=== PATIENT | female | born 1990 | race Caucasian/White ===

== ENCOUNTER 2018-04-09 14:22 | Emergency (ER) | payer OTHER, SELFPAY ==
[2018-04-09] MEDS ORDERED: NA CHLORIDE 0.9% 1,000 ML ONE (14:56)
[2018-04-09 15:12] LABS: Absolute Lymphocytes (CBC) 1.5 K/uL (0.7-4.9); Absolute Monocytes 0.5 K/uL (0.1-1.3); Absolute Neutrophil 7.2 K/uL (1.8-8.0); Basophils % 0.3 % (0-1.3); Eosinophils % 0.3 % (0-4.4); Hematocrit 41.1 % (36.0-45.0); Lymphocytes % 15.8 % (15.3-44.8); MCH 33.7 pg (27.0-35.0); MCV 97.5 fL (80-100); MPV 8.4 fL (7.6-11.3); Monocytes % 5.8 % (3.3-12.3); RBC Red Blood Cell Count 4.21 M/uL (3.86-4.86)
[2018-04-09 15:17] LABS: BUN Blood Urea Nitrogen 13 mg/dL (6-20); Bicarbonate 23 mEq/L (21-31); Glucose Level 162 mg/dL (65-120); Potassium 3.4 mEq/L (3.6-5.0); Sodium Level 132 mEq/L (135-145)
[2018-04-09] MEDS ORDERED: POTASSIUM CL SA 10 MEQ TAB PO ONE (15:33)
[2018-04-09 15:34] LABS: Urine Blood TRACE (NEG); Urine Glucose NEGATIVE (NEG); Urine Protein NEGATIVE (NEG); Urine pH 6.5 (5.0-7.0)
--- NOTE | 2018-04-09 16:10 | ER ---
Nurse's Notes [facility] Name: Gladys Mohr Age: 27 yrs Sex: Female : 1990 Arrival Date: 04/09/2018 Time: 14:24 Bed 12 Private MD: Diagnosis: Hypokalemia;Volume depletion, unspecified Presentation: 04/09 14:25 Presenting complaint: EMS states: pt was working at [employer] in [place], said she is tw2 dehydrated, started getting chills and was jittery, denies LOC, they gave her orange juice, she did report a lot of drinking last night, no med hx, vs stable. Transition of care: patient was not received from another setting of care. Onset of symptoms was April 09, 2018. Risk Assessment: Do you want to hurt yourself or someone else? Patient reports no desire to harm self or others. Initial Sepsis Screen: Does the patient meet any 2 criteria? No. Patient's initial sepsis screen is negative. Does the patient have a suspected source of infection? No. Patient's initial sepsis screen is negative. Care prior to arrival: None. 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 - Social history:: Smoking status: Patient uses tobacco products, smokes one pack cigarettes per day. Patient uses alcohol, on a daily basis. - Ebola Screening: : Patient negative for fever greater than or equal to 101.5 degrees Fahrenheit, and additional compatible Ebola Virus Disease symptoms Patient denies exposure to infectious person Patient denies travel to an Ebola-affected area in the 21 days before illness onset No symptoms or risks identified at this time. Screenin:27 Abuse screen: Denies threats or abuse. Nutritional screening: No deficits noted. tw2 Tuberculosis screening: No symptoms or risk factors identified. Fall Risk None identified. Assessment: 14:35 General: Appears in no apparent distress. Behavior is calm, cooperative. Pain: iw Complains of pain in right hand and left hand. Neuro: Level of Consciousness is awake, alert, obeys commands, Oriented to person, place, time, Moves all extremities. Cardiovascular: Patient's skin is warm and dry. Respiratory: Respiratory effort is even, unlabored, Respiratory pattern is regular, symmetrical. GI: Patient currently denies nausea, vomiting. Derm: Skin is pink, warm \T\ dry. Musculoskeletal: Range of motion: intact in all extremities. Vital Signs: 14:26 BP 134 / 92; Pulse 83; Resp 18 S; Temp 98(TE); Pulse Ox 100% on R/A; Weight 49.9 kg; iw Height 5 ft. 2 in. (157.48 cm); Pain 5/10; 16:30 BP 133 / 85; Pulse 64; Resp 17; Pulse Ox 98% on R/A; rk2 14:26 Body Mass Index 20.12 (49.90 kg, 157.48 cm) iw ED Course: 14:24 Patient arrived in ED. rg4 14:25 Gayle Dos Santos FNP-C is PHCP. kb 14:25 Elan Marrero MD is Attending Physician. kb 14:26 Triage completed. tw2 14:26 Arm band placed on. tw2 14:27 Bed in low position. Pulse ox on. NIBP on. tw2 14:31 Jojo Quiñonez, RN is Primary Nurse. iw 14:48 Initial lab(s) drawn, by mi, sent to lab. Inserted saline lock: 20 gauge in right iw antecubital area, using aseptic technique. Blood collected. 16:51 No provider procedures requiring assistance completed. Patient did not have IV access rk2 during this emergency room visit. 16:55 Basic Metabolic Panel Sent. rk2 16:55 CBC with Diff Sent. rk2 Administered Medications: 15:02 Drug: NS 0.9% 1000 ml Route: IV; Rate: 1000 ml; Site: right antecubital; rk2 16:00 Follow up: Response: No adverse reaction; IV Status: Completed infusion rk2 15:34 Drug: Potassium Chloride 20 mEq Route: PO; rk2 16:48 Follow up: Response: No adverse reaction rk2 Outcome: 16:09 Discharge ordered by . kb 16:51 Discharged to home ambulatory. rk2 16:51 Condition: good 16:51 Discharge instructions given to patient. 16:55 Patient left the ED. rk2 Signatures: Gayle Dos Santos, PROGRAM STRATEGIST-C PROGRAM STRATEGIST-Ckb Jojo Quiñonez, RN RN iw Gini Pena RN RN tw2 Olive Daugherty 4 Enid Pringle RN RN rk2 Corrections: (The following items were deleted from the chart) 14:31 14:26 Temp 98F Temporal; tw2 iw
--- NOTE | 2018-04-09 16:10 | EDPHYS ---
Physician Documentation [facility] Name: Gladys Mohr Age: 27 yrs Sex: Female : 1990 Arrival Date: 04/09/2018 Time: 14:24 Bed 12 Private MD: ED Physician Elan Marrero HPI: 04/09 16:07 This 27 yrs old Female presents to ER via EMS with complaints of DEHYDRATION. kb 16:08 The patient presents with generalized weakness. Onset: The symptoms/episode kb began/occurred just prior to arrival. Context: occurred at work, occurred while the patient was working, just prior to the episode the patient experienced no apparent symptoms. Modifying factors: The symptoms are alleviated by nothing, the symptoms are aggravated by nothing. Associated signs and symptoms: Pertinent positives: general weakness and muscle cramps. Severity of symptoms: At their worst the symptoms were mild moderate in the emergency department the symptoms have resolved. Patient's baseline: Neuro: alert and fully oriented, Motor: no deficits, Ambulation: walks without assistance, Speech: normal. The patient has not experienced similar symptoms in the past. The patient has not recently seen a physician. 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 - Social history:: Smoking status: Patient uses tobacco products, smokes one pack cigarettes per day. Patient uses alcohol, on a daily basis. - Ebola Screening: : Patient negative for fever greater than or equal to 101.5 degrees Fahrenheit, and additional compatible Ebola Virus Disease symptoms Patient denies exposure to infectious person Patient denies travel to an Ebola-affected area in the 21 days before illness onset No symptoms or risks identified at this time. ROS: 16:07 Constitutional: Negative for fever, chills, and weight loss, ENT: Negative for injury, kb pain, and discharge, Neck: Negative for injury, pain, and swelling, Cardiovascular: Negative for chest pain, palpitations, and edema, Respiratory: Negative for shortness of breath, cough, wheezing, and pleuritic chest pain, Abdomen/GI: Negative for abdominal pain, nausea, vomiting, diarrhea, and constipation, Back: Negative for injury and pain, : Negative for injury, bleeding, discharge, and swelling, MS/Extremity: Negative for injury and deformity, Skin: Negative for injury, rash, and discoloration, Neuro: Negative for headache, weakness, numbness, tingling, and seizure. Exam: 16:07 Constitutional: This is a well developed, well nourished patient who is awake, alert, kb and in no acute distress. Head/Face: Normocephalic, atraumatic. Chest/axilla: Normal chest wall appearance and motion. Nontender with no deformity. No lesions are appreciated. Cardiovascular: Regular rate and rhythm with a normal S1 and S2. No gallops, murmurs, or rubs. Normal PMI, no JVD. No pulse deficits. Respiratory: Lungs have equal breath sounds bilaterally, clear to auscultation and percussion. No rales, rhonchi or wheezes noted. No increased work of breathing, no retractions or nasal flaring. Abdomen/GI: Soft, non-tender, with normal bowel sounds. No distension or tympany. No guarding or rebound. No evidence of tenderness throughout. Back: No spinal tenderness. No costovertebral tenderness. Full range of motion. Skin: Warm, dry with normal turgor. Normal color with no rashes, no lesions, and no evidence of cellulitis. MS/ Extremity: Pulses equal, no cyanosis. Neurovascular intact. Full, normal range of motion. Neuro: Awake and alert, GCS 15, oriented to person, place, time, and situation. Cranial nerves II-XII grossly intact. Motor strength 5/5 in all extremities. Sensory grossly intact. Cerebellar exam normal. Normal gait. Vital Signs: 14:26 BP 134 / 92; Pulse 83; Resp 18 S; Temp 98(TE); Pulse Ox 100% on R/A; Weight 49.9 kg; iw Height 5 ft. 2 in. (157.48 cm); Pain 5/10; 16:30 BP 133 / 85; Pulse 64; Resp 17; Pulse Ox 98% on R/A; rk2 14:26 Body Mass Index 20.12 (49.90 kg, 157.48 cm) iw MDM: 14:27 Patient medically screened. kb 16:07 Data reviewed: vital signs, nurses notes. Data interpreted: Pulse oximetry: on room air kb is 100 %. Interpretation: normal. Counseling: I had a detailed discussion with the patient and/or guardian regarding: the historical points, exam findings, and any diagnostic results supporting the discharge/admit diagnosis, lab results, the need for outpatient follow up, a family practitioner, to return to the emergency department if symptoms worsen or persist or if there are any questions or concerns that arise at home. 04/09 14:43 Order name: CBC with Diff kb 04/09 14:43 Order name: Basic Metabolic Panel kb 04/09 14:43 Order name: CBC with Automated Diff; Complete Time: 15:23 EDMS 04/09 14:43 Order name: Basic Metabolic Panel; Complete Time: 15:18 EDMS 04/09 15:03 Order name: Urine Dipstick--Ancillary (enter results); Complete Time: 15:35 bd 04/09 15:03 Order name: Urine --Ancillary (enter results); Complete Time: 15:35 bd 04/09 14:43 Order name: Urine Dipstick-Ancillary (obtain specimen); Complete Time: 14:54 kb 04/09 14:43 Order name: Urine Test (obtain specimen); Complete Time: 14:59 kb 04/09 14:43 Order name: IV Start; Complete Time: 14:48 kb Administered Medications: 15:02 Drug: NS 0.9% 1000 ml Route: IV; Rate: 1000 ml; Site: right antecubital; rk2 16:00 Follow up: Response: No adverse reaction; IV Status: Completed infusion rk2 15:34 Drug: Potassium Chloride 20 mEq Route: PO; rk2 16:48 Follow up: Response: No adverse reaction rk2 Disposition: 17:40 Co-signature as Attending Physician, Elan Marrero MD. rn Disposition: 04/09/18 16:09 Discharged to Home. Impression: Hypokalemia, Volume depletion, unspecified. - Condition is Stable. - Discharge Instructions: Dehydration, Adult, [id number]. - Medication Reconciliation Form, Thank You Letter, Antibiotic Education, Prescription Opioid Use form. - Follow up: Emergency Department; When: As needed; Reason: Worsening of condition. Follow up: Private Physician; When: 2 - 3 days; Reason: Recheck today's complaints, Continuance of care, Re-evaluation by your physician. Signatures: Dispatcher [employer] EDGayle Mayberry, MANAGER CLINICAL SERVICES-C MANAGER CLINICAL SERVICES-Ckb Jojo Quiñonez, RN RN Elan Romero MD MD rn Kidder, Rhonda, RN RN rk2 Corrections: (The following items were deleted from the chart) 16:55 16:09 04/09/2018 16:09 Discharged to Home. Impression: Hypokalemia; Volume depletion, rk2 unspecified. Condition is Stable. Forms are Medication Reconciliation Form, Thank You Letter, Antibiotic Education, Prescription Opioid Use. Follow up: Emergency Department; When: As needed; Reason: Worsening of condition. Follow up: Private Physician; When: 2 - 3 days; Reason: Recheck today's complaints, Continuance of care, Re-evaluation by your physician. kb
[2018-04-09 17:06] VITALS: TEMP 98
[2018-04-09 17:07] VITALS: BP 133/85; O2SAT 98
== END 2018-04-09 16:55 | disposition home or self-care (01) ==
LOC: ER 14:22
DX: E86.9 Volume depletion, unspecified (principal); E87.6 Hypokalemia; F17.210 Nicotine dependence, cigarettes, uncomplicated
CPT/HCPCS: 36415; 80048; 81003; 81025; 85025; 96360; 99284; J7030

== ENCOUNTER 2021-09-24 16:47 | Emergency (ER) | payer SELFPAY ==
--- NOTE | 2021-09-24 18:07 | RAD REPORT ---
EXAM DESCRIPTION: RAD - Shoulder Left 2 View - 09/24/2021 5:57 pm CLINICAL HISTORY: PAIN COMPARISON: No comparisons FINDINGS: No acute fracture. No malalignment. No significant focal degenerative changes. IMPRESSION: No acute osseous abnormality involving the left shoulder.
[2021-09-24] MEDS ORDERED: CYCLOBENZAPRINE 10 MG TAB ONE (18:34)
[2021-09-24] MEDS ORDERED: KETOROLAC 30 MG/ML INJ ONE (18:34)
--- NOTE | 2021-09-24 18:55 | ER ---
Nurse's Notes [facility] Name: Gladys Mohr Age: 31 yrs Sex: Female : 1990 Arrival Date: 09/24/2021 Time: 16:48 Bed 11 Private MD: Diagnosis: Pain in left shoulder Presentation: 09/24 17:27 Chief complaint: Patient states: Left shoulder pain that began this morning upon vg1 awakening. States 'heard a pop in Left shoulder' when getting out of bed. States numbing to Left arm. Denies any recent injuries. ESTRELLA finger cap refill <3 seconds. ROM limited in Left shoulder. Coronavirus screen: Vaccine status: Patient reports being unvaccinated. Ebola Screen: Patient negative for fever greater than or equal to 101.5 degrees Fahrenheit, and additional compatible Ebola Virus Disease symptoms. Initial Sepsis Screen: Does the patient meet any 2 criteria? No. Patient's initial sepsis screen is negative. Does the patient have a suspected source of infection? No. Patient's initial sepsis screen is negative. Risk Assessment: Do you want to hurt yourself or someone else? Patient reports no desire to harm self or others. Onset of symptoms was September 23, 2021. 17:27 Method Of Arrival: Ambulatory vg1 17:27 Acuity: [place] 4 vg1 Triage Assessment: 17:34 General: Appears in no apparent distress. uncomfortable, Behavior is calm, cooperative. vg1 Pain: Complains of pain in Left Shoulder. Musculoskeletal: Capillary refill < 3 seconds, in bilateral fingers. Range of motion: limited in left shoulder. 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 - Social history:: Smoking status: Patient reports the use of cigarette tobacco products, smokes one pack cigarettes per day. Screenin:30 Abuse screen: Denies threats or abuse. Denies injuries from another. Nutritional jl7 screening: No deficits noted. Tuberculosis screening: No symptoms or risk factors identified. Fall Risk None identified. Vital Signs: 17:27 BP 128 / 84; Pulse 76; Resp 16; Temp 97.8; Pulse Ox 100% ; Weight 61.23 kg; Height 5 vg1 ft. 2 in. (157.48 cm); Pain 2/10; 17:27 Body Mass Index 24.69 (61.23 kg, 157.48 cm) vg1 ED Course: 16:48 Patient arrived in ED. ds1 17:33 Triage completed. vg1 17:34 Arm band placed on. vg1 17:41 Aly Suarez PA is PHCP. cp 17:41 Jenny Baca MD is Attending Physician. cp 17:57 Shoulder Left (2 View) XRAY In Process Unspecified. EDMS 18:22 Chitra Singleton RN is Primary Nurse. jl7 18:30 Patient has correct armband on for positive identification. Bed in low position. Call jl7 light in reach. Side rails up X 1. 18:54 Juan Farias MD is Referral Physician. cp 19:16 No provider procedures requiring assistance completed. Patient did not have IV access em during this emergency room visit. Administered Medications: 18:40 Drug: TORadol (ketorolac) 30 mg Route: IM; Site: right deltoid; vg1 18:40 Drug: Flexeril (cyclobenzaprine) 10 mg Route: PO; vg1 Outcome: 18:55 Discharge ordered by MD. cp 19:16 Discharged to home ambulatory, with family. em 19:16 Condition: stable 19:16 Discharge instructions given to patient, Instructed on discharge instructions, follow up and referral plans. medication usage, Demonstrated understanding of instructions, follow-up care, medications, Prescriptions given X 2. 19:16 Patient left the ED. em Signatures: Dispatcher [employer] EDRI Tyler Domínguez, RN RN Niki Enamorado ds1 Aly Suarez PA PA cp Chitra Singleton RN RN jl7 Garcia, Victoria RN RN vg1 Corrections: (The following items were deleted from the chart) 17:34 17:34 PSHx: None; vg1 vg1
--- NOTE | 2021-09-24 18:56 | EDPHYS ---
Physician Documentation [facility] Name: Gladys Mohr Age: 31 yrs Sex: Female : 1990 Arrival Date: 09/24/2021 Time: 16:48 Bed 11 Private MD: ED Physician Jenny Baca HPI: 09/24 18:15 This 31 yrs old Female presents to ER via Ambulatory with complaints of cp Shoulder Pain. 18:15 The patient or guardian complains of decreased range of motion, pain, that is acute. cp left shoulder. Onset: The symptoms/episode began/occurred this morning. Modifying factors: The symptoms are aggravated by movement, rotation of arm. 18:15 Associated signs and symptoms: Pertinent positives: Numbness in left arm Pertinent cp negatives: chest pain, neck pain, shortness of breath, Weakness in left arm injury. 18:15 Severity of symptoms: in the emergency department the symptoms are unchanged, despite cp home interventions. Patient denies injury. Reports left shoulder pain started upon awakening this morning. 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 - Social history:: Smoking status: Patient reports the use of cigarette tobacco products, smokes one pack cigarettes per day. ROS: 18:20 MS/extremity: Positive for decreased range of motion, pain, paresthesias, tenderness, cp of the left arm and left shoulder, Negative for injury or acute deformity. 18:20 Eyes: Negative for injury, pain, redness, and discharge. cp 18:20 Constitutional: Negative for body aches, chills, fever, poor PO intake. 18:20 Neck: Negative for pain with movement, pain at rest, stiffness. 18:20 Cardiovascular: Negative for chest pain, palpitations. 18:20 Respiratory: Negative for cough, shortness of breath, wheezing. 18:20 Abdomen/GI: Negative for abdominal pain, nausea, vomiting, and diarrhea. 18:20 Back: Negative for pain at rest, pain with movement. 18:20 Skin: Negative for cellulitis, rash. 18:20 Neuro: Positive for numbness, of the left arm, Negative for altered mental status, weakness. 18:20 All other systems are negative. Exam: 18:25 Constitutional: The patient appears in no acute distress, alert, awake, cp non-diaphoretic, non-toxic, well developed, well nourished. 18:25 Head/Face: Normocephalic, atraumatic. cp 18:25 Eyes: Periorbital structures: appear normal, Conjunctiva: normal, no exudate, no injection, Lids and lashes: appear normal, bilaterally. 18:25 ENT: External ear(s): are unremarkable, Nose: is normal, Mouth: Lips: moist, Oral mucosa: moist, Posterior pharynx: Airway: no evidence of obstruction, patent. 18:25 Neck: C-spine: vertebral tenderness, is not appreciated, crepitus, is not appreciated, ROM/movement: limited range of motion, is not appreciated, Meningeal signs: are not present, nuchal rigidity, is not appreciated. 18:25 Chest/axilla: Inspection: normal. 18:25 Cardiovascular: Rate: normal, Rhythm: regular, Pulses: Pulses are 2+ in left radial artery. JVD: is not appreciated. 18:25 Respiratory: the patient does not display signs of respiratory distress, Respirations: normal, no use of accessory muscles, no retractions, labored breathing, is not present, Breath sounds: are clear throughout, no decreased breath sounds, no stridor, no wheezing. 18:25 Back: pain, that is moderate, of the left trapezius and left scapular area, muscle spasm, is not present. 18:25 Musculoskeletal/extremity: Extremities: grossly normal except: noted in the left shoulder: pain, tenderness, ROM: limited passive range of motion due to pain, in the left shoulder, the left arm Tingling of extremity. Vital Signs: 17:27 BP 128 / 84; Pulse 76; Resp 16; Temp 97.8; Pulse Ox 100% ; Weight 61.23 kg; Height 5 vg1 ft. 2 in. (157.48 cm); Pain 2/10; 17:27 Body Mass Index 24.69 (61.23 kg, 157.48 cm) vg1 Procedures: 19:00 Splinting: Splint applied to left shoulder using sling, applied by nurse. Examined by cp me, post splint application: neurovascular intact, Patient tolerated well. MDM: 18:11 Patient medically screened. 18:55 Data reviewed: vital signs, nurses notes, radiologic studies, plain films. 18:55 Differential diagnosis: Anterior dislocation with fracture, Posterior dislocation with cp fracture, tendonitis. Test interpretation: by ED physician or midlevel provider: plain radiologic studies. Counseling: I had a detailed discussion with the patient and/or guardian regarding: the historical points, exam findings, and any diagnostic results supporting the discharge/admit diagnosis, radiology results, the need for outpatient follow up, a orthopedic surgeon, to return to the emergency department if symptoms worsen or persist or if there are any questions or concerns that arise at home. Response to treatment: the patient's symptoms have mildly improved after treatment. 09/24 17:25 Order name: Shoulder Left (2 View) XRAY; Complete Time: 18:26 vg1 09/24 18:26 Interpretation: Report reviewed. 09/24 18:26 Order name: Sling; Complete Time: 18:39 cp Administered Medications: 18:40 Drug: TORadol (ketorolac) 30 mg Route: IM; Site: right deltoid; vg1 18:40 Drug: Flexeril (cyclobenzaprine) 10 mg Route: PO; vg1 Disposition Summary: 09/24/21 18:55 Discharge Ordered Location: Home cp Problem: new cp Symptoms: have improved cp Condition: Stable cp Diagnosis - Pain in left shoulder cp Followup: cp - With: Juan Farias MD - When: 5 - 6 days - Reason: Recheck today's complaints Discharge Instructions: - Discharge Summary Sheet cp - Shoulder Pain cp - Shoulder Range of Motion Exercises cp - Form - Excuse from Work, School, or Physical Activity cp Forms: - Medication Reconciliation Form cp - Thank You Letter cp - Antibiotic Education cp - Prescription Opioid Use cp - Work release form em Prescriptions: - Cyclobenzaprine 10 mg Oral Tablet - take 1 tablet by ORAL route every 8 hours As needed; 20 tablet; Refills: 0, cp Product Selection Permitted - Diclofenac Sodium 75 mg Oral Tablet Sustained Release - take 1 tablet by ORAL route 2 times per day; 30 tablet; Refills: 0, Product cp Selection Permitted Addendum: 10/03/2021 05:27 Co-signature as Attending Physician, Jenny neil a2 Signatures: Dispatcher [employer] Aly Marte PA PA cp Alzahri, Mohammad, MD MD ma2 More Daugherty RN RN vg1 Corrections: (The following items were deleted from the chart) 09/24 17:34 17:34 PSHx: None; vg1 vg1
[2021-09-24 19:28] VITALS: BP 128/84; TEMP 97.8; O2SAT 100
== END 2021-09-24 19:16 | disposition home or self-care (01) ==
LOC: ER 16:47
DX: M25.512 Pain in left shoulder (principal); F17.210 Nicotine dependence, cigarettes, uncomplicated
CPT/HCPCS: 96372; 99283